=== PATIENT | female | born 1985 | race African-American/Black ===

== ENCOUNTER 2017-09-21 05:05 | Inpatient (IN) | payer OTHER ==
[2017-09-21] VITALS (7 sets, daily range): BP systolic 118–145; BP diastolic 63–73
[~2017-09-21 05:05] MED LIST: PRENATAL VITAM1 EAC3 PO
[2017-09-21 07:57] LABS: BASOPHIL (%) 0.2 % (0-1); EOSINOPHIL (%) 0.2 % (0-5); IMMATURE GRANULOCYTE (%) 0.4 % (0.0-0.7); LYMPHOCYTE COUNT 0.7 K/uL (1.0-2.8); MCH 29.7 PG (29.0-34.0); MCHC 33.3 G/DL (30.0-36.0); MONOCYTE (%) 5.3 % (3-12); MONOCYTE COUNT 0.3 K/uL (0-0.8); NEUTROPHIL (%) 79.9 % (45-76); NEUTROPHIL COUNT 4.2 K/uL (1.8-6.4); PLATELET COUNT 176 K/uL (156-360); RBC DIS.WIDTH-CV 13.6 % (11.8-14.6); RBC DIS.WIDTH-SD 43.9 % (39-53); RED BLOOD COUNT 4.38 M/uL (3.80-5.20); WHITE BLOOD COUNT 5.3 K/uL (4.1-10.2)
[2017-09-21 13:38] LABS: BENZODIAZEPINES, URINE SCREEN Negative (200 ng/mL)
[2017-09-22 06:39] LABS: BASOPHIL (%) 0.5 % (0-1); EOSINOPHIL (%) 0.9 % (0-5); EOSINOPHIL COUNT 0.1 K/uL (0-0.3); HEMATOCRIT 37.6 % (36.0-46.0); HEMOGLOBIN 12.3 G/DL (11.9-15.5); IMMATURE GRANULOCYTE (%) 0.3 % (0.0-0.7); LYMPHOCYTE (%) 27.2 % (15-42); LYMPHOCYTE COUNT 1.8 K/uL (1.0-2.8); MCH 29.3 PG (29.0-34.0); MCHC 32.7 G/DL (30.0-36.0); MCV 89.5 FL (83-99); MONOCYTE (%) 9.6 % (3-12); MONOCYTE COUNT 0.6 K/uL (0-0.8); NEUTROPHIL (%) 61.5 % (45-76); PLATELET COUNT 184 K/uL (156-360); RBC DIS.WIDTH-CV 13.7 % (11.8-14.6); RBC DIS.WIDTH-SD 44.2 % (39-53); WHITE BLOOD COUNT 6.5 K/uL (4.1-10.2)
[2017-09-22 07:37] VITALS: BP 130/68
[2017-09-22 15:13] VITALS: BP 140/71
[2017-09-22 23:00] VITALS: BP 146/75
[2017-09-23 08:48] VITALS: BP 137/77
[2017-09-23] MEDS ORDERED: IBUPROFEN800 MG PO (11:49)
[2017-09-23 12:30] VITALS: BP 149/77
[2017-09-23 13:41] LABS: ALBUMIN 3.6 G/DL (3.2-4.8); ALKALINE PHOSPHATASE 131 IU/L (3-129); ALT (GPT) 17 IU/L (3-49); AST (GOT) 21 IU/L (2-34); CHLORIDE 106 MEQ/L (99-109); CREATININE 0.7 MG/DL (0.6-1.3); GFR ESTIMATE (CALCULATED) > 59 mL/min/; GLUCOSE 125 mg/dL (70-99); POTASSIUM 4.2 MEQ/L (3.7-5.4); SODIUM 140 MEQ/L (136-147); TOTAL BILIRUBIN 0.4 MG/DL (0.0-1.0); TOTAL PROTEIN 6.4 G/DL (6.4-8.3); UREA NITROGEN (BUN) 11 mg/dL (9-23); URIC ACID 5.3 mg/dL (3.1-9.2)
[2017-09-23 16:29] LABS: UR CREATININE CONCENTRATION 89.1 MG/DL
== END 2017-09-23 16:31 | disposition home or self-care (01) | DRG 775 ==
LOC: LDRP-OP 05:05 → 2WEST 05:06
PROVIDERS: Advanced Practice Midwife
PROC: 10E0XZZ Delivery of Products of Conception, External Approach (ICD-10-PCS; principal; 2017-09-21)
DX: O62.3 Precipitate labor (principal); O60.14X0 Preterm labor third trimester with preterm delivery third trimester, not applicable or unspecified; O24.420 Gestational diabetes mellitus in childbirth, diet controlled; O99.214 Obesity complicating childbirth; E66.9 Obesity, unspecified; Z68.38 Body mass index [BMI] 38.0-38.9, adult; Z3A.36 36 weeks gestation of pregnancy; Z37.0 Single live birth
CPT/HCPCS: 80053; 80306 90; 82570; 84156; 84550; 85025; 85384; 86850; 86900; 86901